=== PATIENT | female | born 2000 | race American Indian/Alaskan Native ===

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

== ENCOUNTER 2020-07-28 21:58 | Emergency (ER) | payer MEDICAID ==
[2020-07-28 23:21] VITALS: BP 147/97
[2020-07-29 00:31] LABS: Bacteria,Urine 1+ /HPF (Negative); Bilirubin,Urine NEG (Negative); Blood,Urine NEG (Negative); Calcium Oxalate Crystals,Urine 1+; Color,Urine Yellow (Yellow); Mucus,Urine FEW /HPF; Protein,Urine <15 mg/dL mg/dL (Negative)
[2020-07-29 00:38] LABS: HCG Qualitative,Urine Negative (Negative)
== END 2020-07-29 02:20 | disposition left against medical advice (07) ==
LOC: ED 21:58
DX: R10.9 Unspecified abdominal pain (principal); Z53.21 Procedure and treatment not carried out due to patient leaving prior to being seen by health care provider
CPT/HCPCS: 81001; 81025